=== PATIENT | male | born 1985 | race Caucasian/White ===

== ENCOUNTER 2023-01-26 12:42 | Emergency (ER) | payer OTHER ==
[2023-01-26] MEDS ORDERED: predniSONE 20 MG TAB ONE (13:58)
[2023-01-26] MEDS ORDERED: Famotidine 20 MG TAB ONE (13:59)
== END 2023-01-26 14:10 | disposition home or self-care (01) ==
LOC: CSHERS 12:42
DX: T78.3XXA Angioneurotic edema, initial encounter (principal)
CPT/HCPCS: 99283; J7512